=== PATIENT | female | born 1950 | race Caucasian/White ===

== ENCOUNTER → 2018-12-04 12:32 | Outpatient (CLI) | payer MEDICARE, OTHER, SELFPAY ==
--- NOTE | 2018-12-04 | DI.MRI.S_ITS ---
PROCEDURE: MR SHOULDER RT WO CON INDICATIONS: Osteopenia/Right shoulder pain TECHNIQUE: Noncontrast oblique coronal T2 fast spin echo with fat saturation, oblique sagittal T1 spin echo and T2 fast spin echo with fat saturation, axial T1 spin echo and T2 fast spin echo with fat saturation through the shoulder. COMPARISON: None. FINDINGS: Image quality: Excellent. Rotator cuff: Supraspinatus tendinopathy with partial-thickness articular sided tear. Infraspinatus interstitial tearing, with low-grade bursal and articular surface fraying. Teres minor appears intact. Subscapularis mild tendinopathy and thickening. Fat infiltration of the infraspinatus muscle. Borderline atrophy of the supraspinatus muscle. Bones and bursae: No bone marrow contusions or fractures. Severe hypertrophic acromioclavicular joint degeneration. Acromion demonstrates conventional anatomy, without an os acromiale. Mild subacromial-subdeltoid bursitis. Small joint effusion Capsule and soft tissues: Superior labral tear Blunted irregular appearance of the posterior labrum suggestive of chronic tear. Long head of the biceps tendon intact. The rotator interval appears normal, without fibrosis. Coracohumeral ligament intact. IMPRESSION: Supraspinatus tendinopathy with partial-thickness articular sided tear. Infraspinatus interstitial tearing and low-grade bursal and articular surface fraying. Mild subscapularis tendinopathy. Superior and posterior labral tear versus chronic degeneration. Small joint effusion Mild subacromial-subdeltoid bursitis. Dictated by: Jose Duncan M.D. on 12/04/2018 at 15:40 Approved by: Jose Duncan M.D. on 12/04/2018 at 15:48
== END ==
PROVIDERS: PCP Family Medicine; Visit Provider Family Medicine
DX: M25.511 Pain in right shoulder (principal); M85.851 Other specified disorders of bone density and structure, right thigh; Z78.0 Asymptomatic menopausal state; M75.111 Incomplete rotator cuff tear or rupture of right shoulder, not specified as traumatic; M19.011 Primary osteoarthritis, right shoulder; M25.411 Effusion, right shoulder; M75.51 Bursitis of right shoulder; F17.200 Nicotine dependence, unspecified, uncomplicated
CPT/HCPCS: 73221; 77080

== ENCOUNTER → 2020-10-29 15:36 | Outpatient (CLI) | payer MEDICARE, OTHER, SELFPAY ==
--- NOTE | 2020-10-29 | DI.ECHO.S_ITS ---
[facility] +---------+ : : [address] : [address] [address] : : : : [id number] : : : : Phone: [phone]+ Echocardiogram Report + + :Name: BRITNEY INFANTE Study Date: 10/29/2020 Height: 62 in : :[facility] ReadingLocation: Weight: 145 lb : : Gender: Female BSA: 1.7 m2 : :: 1950 Age: 70 yrs BP: 148/89 mmHg: :Reason For Study: PULMONARY HYPERTENSION : :Ordering Physician: NEHEMIAH, : :DENISE Performed By: Sandra Cervantes : :Referring: DENISE SINGH : + + Interpretation Summary 1) Normal left ventricular thickness, size, wall motion, and systolic function (EF 60-65%). 2) Normal right ventricular size and function. 3) There is mild to moderate tricuspid regurgitation. 4) The right ventricular systolic pressure is estimated to be at least 31 mmHg based on an estimated right atrial pressure of 8 mm Hg. 5) No prior Echo available for comparison. Procedure: A two-dimensional transthoracic echocardiogram with color flow and Doppler was performed. The study quality was technically adequate. There is no prior echocardiogram noted for this patient. The patient was in sinus rhythm with heart rates between 60-67 bpm during the exam. Left Ventricle: The left ventricle is normal in size and wall thickness. The ejection fraction is estimated to be 60-65%. Left ventricular systolic function appears normal without focal wall motion abnormalities. Right Ventricle: The right ventricle is normal in size and function. Atria: The left atrium is moderately dilated. Right atrial size is normal. There is no Doppler evidence for an interatrial shunt. The atrial septum is aneurysmal. Mitral Valve: There is moderate mitral annular calcification. There is trace mitral regurgitation. Aortic Valve: The aortic valve is trileaflet. The aortic valve opens well. There is no aortic valve stenosis. No aortic regurgitation is present. Tricuspid Valve: The tricuspid valve is normal in structure and function. There is mild to moderate tricuspid regurgitation. The right ventricular systolic pressure is estimated to be at least 31 mmHg based on an estimated right atrial pressure of 8 mm Hg. Pulmonic Valve: The pulmonic valve is not well visualized. There is no pulmonic valvular regurgitation. Great Vessels: The aortic root is normal size. The dimensions of the ascending aorta are normal. The IVC is dilated (diameter is greater than 2.1 cm) yet it collapses greater than 50% with a sniff. This suggests a right atrial pressure of 8 mm Hg. Pericardium/ Pleura There is no pericardial effusion. There is no pleural effusion. MMode/2D Measurements & Calculations LVIDd: 4.8 cm LVOT diam: 2.0 cm LVIDs: 2.9 cm Ao root diam: 3.4 cm FS: 39.0 % asc Aorta Diam: 3.1 cm IVSd: 0.57 cm Ao Arch Diam (Prox Trans): 2.9 cm LVPWd: 0.68 cm LV perrin. diameter/BSA (cm/m^2): 2.9 LV sys. diameter/BSA (cm/m^2): 1.8 LA A2 area: 21.5 cm2 RA long axis: 5.0 cm LA A4 area: 21.3 cm2 RA area: 15.0 cm2 LA length (vol): 5.4 cm RA vol: 38.1 ml LA vol: 72.0 ml RA : 22.8 ml/m2 LA vol index: 43.2 ml/m2 IVC diam: 2.3 cm RVD1 (basal): 3.0 cm TAPSE: 2.1 cm Doppler Measurements & Calculations Ao V2 max: 184.1 cm/sec LVOT Max Kenton: 102.5 cm/sec Ao V2 mean: 113.2 cm/sec LV V1 max P.2 mmHg Ao max P.6 mmHg LV V1 VTI: 22.6 cm Ao mean P.3 mmHg SHANEL(I,D): 1.9 cm2 Ao V2 VTI: 36.6 cm SHANEL(V,D): 1.7 cm2 sev ratio: 0.62 SHANEL indexed to BSA (cm^2/m^2): 1.1 MV E max kenton: 64.7 cm/sec TR max kenton: 241.9 cm/sec MV A max kenton: 103.2 cm/sec TR max P.5 mmHg MV E/A: 0.63 PA V2 max: 118.9 cm/sec Med Peak E' Kenton: 5.8 cm/sec PA V2 mean: 85.6 cm/sec E/E' med: 11.1 PA mean P.3 mmHg Lat Peak E' Kenton: 9.1 cm/sec PA pr(Accel): 22.5 mmHg E/E' lat: 7.1 E/e' average: 9.1 MV dec time: 0.24 sec SV(LVOT): 68.8 ml Reading Physician:05:39 PM
== END ==
PROVIDERS: PCP Family Medicine; Referring Provider Internal Medicine Cardiovascular Disease; Visit Provider Internal Medicine Cardiovascular Disease
DX: I27.20 Pulmonary hypertension, unspecified (principal); I07.1 Rheumatic tricuspid insufficiency
CPT/HCPCS: 93306

== ENCOUNTER → 2021-03-02 13:09 | Outpatient (CLI) | payer MEDICARE, OTHER, SELFPAY ==
[2021-03-02 14:17] LABS: COVID19 -Nasal RAPID Negative (Negative)
== END ==
PROVIDERS: PCP Family Medicine; Visit Provider Family Medicine Sleep Medicine
DX: Z20.822 Contact with and (suspected) exposure to COVID-19 (principal)
CPT/HCPCS: 87635; C9803

== ENCOUNTER → 2021-03-04 09:42 | Outpatient (CLI) | payer MEDICARE, OTHER, SELFPAY ==
--- NOTE | 2021-03-05 18:03 | DI.NM.S_ITS ---
DATE OF SERVICE: 03/04/2021 PROCEDURE: Pharmacological perfusion study. INDICATION: Chest pain with history of pulmonary hypertension, hypertension, smoking, hyperlipidemia. RADIOPHARMACEUTICAL: 26.3 millicurie technetium-99m Myoview IV was injected at stress and 12.4 millicurie technetium-99m Myoview IV was injected at rest. CARDIAC STRESS: The patient underwent IV Lexiscan perfusion study under the supervision of an attending staff using standard intravenous Lexiscan, as per protocol. Baseline rhythm was sinus. During stress, no convincing ischemic changes seen. No significant arrhythmias seen. The patient remained hemodynamically stable. There were rare PVCs. RAW DATA: There is increased subdiaphragmatic activity. Hot spot seen near the inferior border of the heart. GATED STUDY: Resting LV ejection fraction 67 and stress LV ejection fraction 74 percent. Resting end-diastolic volume 115 mL. TID ratio 1.0, which is within normal limits. Lung/heart ratio 0.21, which is within normal limits. MYOCARDIAL PERFUSION SCAN: Stress supine, resting supine and stress prone images were compared to each other. Resting supine and stress supine images revealed moderate-size, moderate to severely decreased perfusion of inferior wall extending into the inferoapex, which got significantly improved during stress prone images, suggestive of tissue attenuation artifact. No convincing ischemia or infarction pattern seen. CONCLUSION: 1. This is a normal myocardial perfusion scan with evidence of diaphragmatic tissue attenuation artifact, which got resolved during stress prone images. 2. Preserved left ventricular function without any obvious wall motion abnormalities. 3. No significant arrhythmias seen. 4. Overall low-risk myocardial perfusion scan. Tiffany Jason - Medardo/carol doc#: [id number]/job#: [id number] dd: 03/05/2021 16:45:00 dt: 03/05/2021 17:47:00 DICTATING MD/COPIES TO: Maynor Elizalde MD COPIES MNE: CHRISTIAN;
== END ==
PROVIDERS: PCP Family Medicine; Referring Provider Internal Medicine Cardiovascular Disease; Visit Provider Internal Medicine Cardiovascular Disease
DX: R07.9 Chest pain, unspecified (principal); I27.20 Pulmonary hypertension, unspecified; I10 Essential (primary) hypertension; E78.5 Hyperlipidemia, unspecified; F17.200 Nicotine dependence, unspecified, uncomplicated
CPT/HCPCS: 78452; 93017; A9502; J2785

== ENCOUNTER 2022-04-13 11:28 | Emergency (ER) | payer MEDICARE, OTHER, SELFPAY ==
[2022-04-13] VITALS (29 sets, daily range): BP systolic 97–201; BP diastolic 53–89; PULSE 58–79; RESP 18; TEMP 36.6; O2SAT 96–100; BMI 28.3
--- NOTE | 2022-04-13 13:38 | PC.NURSE ---
Pt reporting that her ride has to leave and she wants to go. Paperwork given to pt. While she was filling it out, pt reports again feeling dizzy. Assisted back into wheelchair. Pt given water. States everytime I eat or drink anything I get terrible stomach pains since my colonoscopy. This RN talked with pt ride and Fela says she will go get lunch and check in later if she wants to stay. Pt informed of this and agrees to stay to be seen.
[2022-04-13 14:04] LABS: Add Manual Diff / Slide Review NO; Basophils Absolute Auto 100 /uL (0-100); Basophils Percent Auto 1.2 % (0-2); Eosinophils Absolute Auto 0 /uL (0-450); Eosinophils Percent Auto 0.5 % (2-4); Hematocrit 32.7 % (36-46); Lymphocytes Absolute Auto 1600 /uL (1100-4500); Lymphocytes Percent Auto 27.2 % (25-40); Mean Corpuscular HGB Conc 30.6 % (30-36); Mean Corpuscular Hemoglobin 21.3 PG (26-34); Mean Corpuscular Volume 69.5 fL (80-100); Monocytes Absolute Auto 400 /uL (0-900); Monocytes Percent Auto 6.7 % (3-14); Neutrophils Absolute Auto 3700 /uL (1500-7000); Neutrophils Percent Auto 64.4 % (50-75); Platelet Count 377 X10^3/uL (150-400); Red Cell Distribution Width 17.6 % (11.6-14.8); White Blood Cell Count 5.8 X10^3/uL (4.5-11.0)
[2022-04-13 14:13] LABS: Anisocytosis 2+; Poikilocytosis 2+
[2022-04-13 14:14] LABS: Alanine Aminotransferase 19 IU/L (<35); Albumin 4.7 g/dL (3.5-5.0); Albumin Globulin Ratio 1.4 (1.0-2.8); Alkaline Phosphatase 138 U/L (38-126); Aspartate Aminotransferase 25 IU/L (14-36); BUN Creatinine Ratio 18.3 (6-22); Bilirubin Total 0.4 mg/dL (0.2-1.3); Blood Urea Nitrogen 15 mg/dL (7-17); Calcium 10.1 mg/dL (8.4-10.2); Carbon Dioxide 28 mmol/L (22-32); Chloride 101 mmol/L (98-107); Estimated Glomerular Filt Rate > 60 mL/min (>60); Globulin 3.3 g/dL (1.7-4.1); Glucose 107 mg/dL (80-110); HEMOLYSIS < 15 (0-50); Lipase 143 U/L (23-300); Potassium 3.8 mmol/L (3.4-5.1); Sodium 139 mmol/L (137-145)
[2022-04-13 15:51] LABS: Bacteria Urine None Seen; Culture Indicated Urine Cult Not Indicated; Ictotest Urine Negative (Negative); RBC Urine None Seen (0-5/HPF); Squamous Epithelial Cell Urine 1-5 /HPF (0-5/HPF); WBC Urine None Seen (0-5/HPF)
--- NOTE | 2022-04-13 16:11 | DI.CT.S_ITS ---
PROCEDURE: CT ANGIO HEAD AND NECK INDICATIONS: Dizziness/ataxia TECHNIQUE: Pre-contrast 4.5 mm thick sections acquired from the foramen magnum to the vertex. After the administration of intravenous contrast, 1 mm thick sections acquired from the aortic arch through the Muse of [place]. Post-contrast 4.5 mm thick sections then re-acquired from the foramen magnum to the vertex. MIP reformats of the arterial vasculature were utilized. For radiation dose reduction, the following was used: automated exposure control, adjustment of mA and/or kV according to patient size. COMPARISON: None. FINDINGS: Image quality: Excellent. BRAIN: CSF spaces: Ventricles are normal in size and shape. Basal cisterns are patent. No extra-axial fluid collections. Brain: No midline shift. No intracranial bleeds or masses. Martino-white matter interface appears intact. Skull and face: Calvarium and facial bones appear intact, without suspicious lesions. Orbits appear normal. Sinuses: Sinuses and mastoids are clear. HEAD CT ANGIOGRAPHY: Anterior circulation: Intracranial internal carotid arteries are normal in size and flow. The flow within the paired anterior cerebral arteries is normal and symmetric. The flow within the middle cerebral arteries is normal and symmetric. The anterior communicating artery is seen. No aneurysms are seen. Posterior circulation: Visualized portions of the vertebral arteries demonstrate normal caliber, and join to form a normal appearing basilar artery. Flow within the posterior cerebral arteries is normal and symmetric. No aneurysms are seen. NECK CT ANGIOGRAPHY: Carotid system: The great vessels demonstrate a conventional anatomy as they arise from the aortic arch. The origins of the common carotid arteries appear patent. The common carotid arteries demonstrate normal caliber and courses. The bifurcation regions are both widely patent. Mild sclerotic plaque both proximal internal carotid arteries stenosis Posterior circulation: The origins of the vertebral arteries both appear widely patent. The more superior extracranial portions of both vertebral arteries also demonstrate normal courses and calibers. They join to form a normal appearing basilar artery. Soft tissues: Visualized neck soft tissues demonstrate no suspicious abnormalities. [id number] biapical pulmonary emphysema Bones: No suspicious bony lesions. Visualized cervical spine appears normally aligned. IMPRESSION: Unremarkable intracranial CT angiogram without large vessel occlusion, aneurysm or vascular malformation. Mild atherosclerotic plaque in both proximal internal carotid arteries without hemodynamically significant stenosis. Incidental biapical pulmonary emphysema Any quantitative measurements of stenosis were performed using NASCET criteria. Approved by: Terence Corrales M.D. on 04/13/2022 at 16:54
--- NOTE | 2022-04-13 16:13 | ED.DIZZY ---
HPI - Dizziness <Aniket Rm MD - Last Filed: 04/20/22 08:15> General Chief Complaint: Dizziness Stated Complaint: if she moves her head she gets dizzy Time Seen by Provider: 04/13/22 15:33 Source: patient Mode of arrival: Wheelchair History of Present Illness HPI Narrative: Patient here for complaints of constant dizziness feels like the room is spinning for the past 3 weeks. Worse with lying down and getting up. Prefers to sit at the side of the bed. No numbness tingling or weakness no slurred speech. No headache. Patient states 3 weeks ago she walked into a door jam at home, no loss of consciousness. No vomiting. Had blurry vision. Was taken to local emergency department in [place]. Patient can not get into primary care office until end of this month. No slurred speech no facial droop. No altered mental status. No hearing changes. Patient has been trying to do Sai maneuvers at home without relief. No prescriptions were provided for her. Related Data Home Medications Medication Instructions Recorded Confirmed felodipine 10 mg tablet,extended 10 mg PO DAILY 04/13/22 04/13/22 release 24 hr montelukast 10 mg tablet 10 mg PO BEDTIME 04/13/22 04/13/22 Previous Rx's Medication Instructions Recorded ospemifene 60 mg tablet (Osphena) 60 mg PO DAILY #90 tabs 04/13/22 Allergies Allergy/AdvReac Type Severity Reaction Status Date / Time ibuprofen Allergy Unknown Verified 04/13/22 13:45 Review of Systems <Aniket Rm MD - Last Filed: 04/20/22 08:15> Review of Systems Narrative: GENERAL: negative chills, fatigue, malaise, fever, sweats. HEENT: negative sinus pain, ear pain, sore throat RESPIRATORY: negative dyspnea, cough CARDIOVASCULAR: negative chest pain, palpitations GASTROINTESTINAL: negative nausea, vomiting, abdominal pain : negative dysuria, frequency, hematuria MUSCULOSKELETAL: negative muscle or bony pain SKIN: negative rash, skin lesions NEUROLOGIC: negative weakness, numbness, positive dizziness, negative headache, negative slurred speech or facial droop ROS Unobtainable: All systems reviewed & are unremarkable except as noted in HPI and below Patient History <Aniket Rm MD - Last Filed: 04/20/22 08:15> Medical History (Updated 04/14/22 @ 06:08 by Sourav Vo DO) Anemia Arthritis Asthma Chest pain Chronic UTI Depression FH: CVA (cerebrovascular accident) FH: migraine headache GERD (gastroesophageal reflux disease) Heart attack High blood pressure Hypercholesteremia Hyperlipidemia Kidney stones Lower urinary tract symptoms (LUTS) Mixed stress and urge incontinence Osteoarthritis Peptic ulcer disease Postmenopausal atrophic vaginitis Seizure disorder Thyroid disease Surgical History H/O laparoscopy Family History Family/Other Cancer FH: CVA (cerebrovascular accident) Hyperlipidemia Hypertension Diabetes mellitus Gout Bacterial UTI IBS (irritable bowel syndrome) Social History marital status: number of children: 2 Smoking Status: Current every day smoker Type(s) of exercise: other frequency: decline to answer Smoking Status: Current every day smoker tobacco type: cigarettes alcohol intake frequency: holidays/special occasions only Substance Use Type: marijuana Exam <Aniket Rm MD - Last Filed: 04/20/22 08:15> Narrative Exam Narrative: GENERAL: in no distress, not toxic not dyspneic HEAD: Normocephalic. EYES: Pupils equal round, there is horizontal nystagmus ENT: Mucous membranes moist. NECK: Trachea midline. CARDIOVASCULAR: Regular rate and rhythm without murmurs RESPIRATORY: Clear to auscultation. Breath sounds equal bilaterally. No wheezes, rales, or rhonchi. GASTROINTESTINAL: Abdomen soft, non-tender EXTREMITIES: No gross deformities. BACK: No flank tenderness. NEURO: AOx4. Clear speech no facial droop light touch intact bilateral face hands with strong equal nerve specialist. Negative pronator drift. SKIN: Warm and dry PSYCH: Not anxious, is cooperative Initial Vital Signs Initial Vital Signs: Vital Signs Temperature 97.8 F 04/13/22 11:34 Pulse Rate 68 04/13/22 11:34 Respiratory Rate 18 04/13/22 11:34 Blood Pressure 137/62 04/13/22 11:34 Pulse Oximetry 100 04/13/22 11:34 Oxygen Delivery Method Room Air 04/13/22 11:34 <Sourav Vo DO - Last Filed: 04/14/22 06:05> Initial Vital Signs Initial Vital Signs: Vital Signs Temperature 97.8 F 04/13/22 11:34 Pulse Rate 68 04/13/22 11:34 Respiratory Rate 18 04/13/22 11:34 Blood Pressure 137/62 04/13/22 11:34 Pulse Oximetry 100 04/13/22 11:34 Oxygen Delivery Method Room Air 04/13/22 11:34 Course <Aniket Rm MD - Last Filed: 04/20/22 08:15> Course Course Narrative: April 13, 2022 6:00 p.m. s/w dr vo, will need reservations sales supervisor/pt eval in am, mri brain ordered, at this time patient does not feel safe to go home. She is too unsteady on her feet. Ongoing for 3 weeks. Orders Ordered: Discontinued Medications Sodium Chloride (Normal Saline 0.9%) 500 mls @ 1,000 mls/hr IV BOLUS ONE Stop: 04/13/22 16:40 Last Infusion: 04/13/22 17:22 Dose: 0 mls/hr Documented By: Admin: 04/13/22 16:16 Dose: 1,000 mls/hr Documented By: RB Meclizine HCl (Meclizine Hcl 12.5 Mg Tablet) 25 mg PO NOW ONE Stop: 04/13/22 16:12 Last Admin: 04/13/22 16:15 Dose: 25 mg Documented By: RB Naloxone HCl (Naloxone 0.4 Mg/Ml Vial) 0.2 mg IV Q2MIN PRN PRN Reason: Opiate Reversal Nitrofurantoin Macrocrystals (Nitrofurantoin Er 100 Mg Capsule) 100 mg PO NOW ONE Stop: 04/13/22 21:14 Last Admin: 04/13/22 21:45 Dose: 100 mg Documented By: RB Ondansetron HCl (Ondansetron 4 Mg Odt) 4 mg PO NOW PRN PRN Reason: Nausea And Vomiting Ondansetron HCl (Ondansetron 4 Mg/2 Ml Inj) 4 mg IV NOW PRN PRN Reason: Nausea And Vomiting Vital Signs Vital signs: Vital Signs - 8 hr 04/13/22 22:15 04/13/22 22:15 04/13/22 22:30 Pulse Rate 68 Blood Pressure 116/57 L 97/53 L Pulse Oximetry 96 04/13/22 22:30 04/13/22 22:45 04/13/22 22:45 Pulse Rate 64 63 Blood Pressure 99/57 L Pulse Oximetry 96 97 04/13/22 23:00 04/13/22 23:00 04/13/22 23:15 Pulse Rate 61 Blood Pressure 128/60 130/59 L Pulse Oximetry 96 04/13/22 23:15 04/13/22 23:30 04/13/22 23:30 Pulse Rate 58 L 64 Blood Pressure 138/65 Pulse Oximetry 97 97 04/13/22 23:45 04/13/22 23:45 04/14/22 00:00 Pulse Rate 62 72 Blood Pressure 130/62 Pulse Oximetry 96 97 04/14/22 00:01 04/14/22 00:01 04/14/22 00:15 Pulse Rate 68 Blood Pressure 158/66 H 156/69 H Pulse Oximetry 97 04/14/22 00:15 Pulse Rate 64 Blood Pressure Pulse Oximetry 97 <Sourav Vo DO - Last Filed: 04/14/22 06:05> Orders Ordered: Discontinued Medications Sodium Chloride (Normal Saline 0.9%) 500 mls @ 1,000 mls/hr IV BOLUS ONE Stop: 04/13/22 16:40 Last Infusion: 04/13/22 17:22 Dose: 0 mls/hr Documented By: Admin: 04/13/22 16:16 Dose: 1,000 mls/hr Documented By: VEENA Meclizine HCl (Meclizine Hcl 12.5 Mg Tablet) 25 mg PO NOW ONE Stop: 04/13/22 16:12 Last Admin: 04/13/22 16:15 Dose: 25 mg Documented By: VEENA Naloxone HCl (Naloxone 0.4 Mg/Ml Vial) 0.2 mg IV Q2MIN PRN PRN Reason: Opiate Reversal Nitrofurantoin Macrocrystals (Nitrofurantoin Er 100 Mg Capsule) 100 mg PO NOW ONE Stop: 04/13/22 21:14 Last Admin: 04/13/22 21:45 Dose: 100 mg Documented By: VEENA Ondansetron HCl (Ondansetron 4 Mg Odt) 4 mg PO NOW PRN PRN Reason: Nausea And Vomiting Ondansetron HCl (Ondansetron 4 Mg/2 Ml Inj) 4 mg IV NOW PRN PRN Reason: Nausea And Vomiting Vital Signs Vital signs: Vital Signs - 8 hr 04/13/22 22:15 04/13/22 22:15 04/13/22 22:30 Pulse Rate 68 Blood Pressure 116/57 L 97/53 L Pulse Oximetry 96 04/13/22 22:30 04/13/22 22:45 04/13/22 22:45 Pulse Rate 64 63 Blood Pressure 99/57 L Pulse Oximetry 96 97 04/13/22 23:00 04/13/22 23:00 04/13/22 23:15 Pulse Rate 61 Blood Pressure 128/60 130/59 L Pulse Oximetry 96 04/13/22 23:15 04/13/22 23:30 04/13/22 23:30 Pulse Rate 58 L 64 Blood Pressure 138/65 Pulse Oximetry 97 97 04/13/22 23:45 04/13/22 23:45 04/14/22 00:00 Pulse Rate 62 72 Blood Pressure 130/62 Pulse Oximetry 96 97 04/14/22 00:01 04/14/22 00:01 04/14/22 00:15 Pulse Rate 68 Blood Pressure 158/66 H 156/69 H Pulse Oximetry 97 04/14/22 00:15 Pulse Rate 64 Blood Pressure Pulse Oximetry 97 MDM - Dizziness <Aniket Rm MD - Last Filed: 04/20/22 08:15> Lab Data 04/13/22 13:50 04/13/22 13:50 Labs: Lab Results 04/13/22 04/13/22 04/13/22 Range/Units 13:50 13:50 15:15 WBC 5.8 (4.5-11.0) X10^3/uL RBC 4.70 (4.0-5.2) X10^6/uL Hgb 10.0 L (12.0-16.0) g/dL Hct 32.7 L (36-46) % MCV 69.5 L (80-100) fL MCH 21.3 L (26-34) PG MCHC 30.6 (30-36) % RDW 17.6 H (11.6-14.8) % Plt Count 377 (150-400) X10^3/uL Neut % (Auto) 64.4 (50-75) % Lymph % (Auto) 27.2 (25-40) % [place] % (Auto) 6.7 (3-14) % Eos % (Auto) 0.5 L (2-4) % Baso % (Auto) 1.2 (0-2) % Neut # (Auto) 3700 (3388-1135) /uL Lymph # (Auto) 1600 (0848-9556) /uL [place] # (Auto) 400 (0-900) /uL Eos # (Auto) 0 (0-450) /uL Baso # (Auto) 100 (0-100) /uL RBC Morphology Not Reportable Poikilocytosis 2+ H Anisocytosis 2+ H Sodium 139 (137-145) mmol/L Potassium 3.8 (3.4-5.1) mmol/L Chloride 101 (98-107) mmol/L Carbon Dioxide 28 (22-32) mmol/L BUN 15 (7-17) mg/dL Creatinine 0.82 (0.52-1.04) mg/dL Estimated GFR > 60 (>60) mL/min BUN/Creatinine Ratio 18.3 (6-22) Glucose 107 (80-110) mg/dL Calcium 10.1 (8.4-10.2) mg/dL Total Bilirubin 0.4 (0.2-1.3) mg/dL AST 25 (14-36) IU/L ALT 19 (<35) IU/L Alkaline Phosphatase 138 H (38-126) U/L Total Protein 8.0 (6.3-8.2) g/dL Albumin 4.7 (3.5-5.0) g/dL Globulin 3.3 (1.7-4.1) g/dL Albumin/Globulin Ratio 1.4 (1.0-2.8) Lipase 143 (23-300) U/L Ur Bilirubin Confirm Negative (Negative) Urine RBC None seen (0-5/HPF) Urine WBC None seen (0-5/HPF) Ur Squamous Epith Cells 1-5 /hpf (0-5/HPF) Urine Bacteria None seen (None) Ur Culture Indicated? Cult not indicated Urine Dip Bedside Urine Glucose Negative Bedside Urine Bilirubin + 1 Bedside Urine Ketone - Negative Urine Specific [place] 1.005 Bedside Urine Occult Blood - Negative Bedside Urine pH 7.5 Bedside Urine Protein - Negative Bedside Urine Urobilinogen 2+ 4mg Bedside Urine Nitrite + Positive Bedside Urine Leukocytes + 70 Esterase Imaging Data CTA - brain/neck: Radiologist's Impression: PROCEDURE:? CT ANGIO HEAD AND NECK ? INDICATIONS:? Dizziness/ataxia ? TECHNIQUE:? Pre-contrast 4.5 mm thick sections acquired from the foramen magnum to the vertex.? After the administration of intravenous contrast, 1 mm thick sections acquired from the aortic arch through the [place] of [place].? Post-contrast 4.5 mm thick sections then re-acquired from the foramen magnum to the vertex.? MIP reformats of the arterial vasculature were utilized.? For radiation dose reduction, the following was used:? automated exposure control, adjustment of mA and/or kV according to patient size.? ? COMPARISON:? None. ? FINDINGS:? Image quality:? Excellent.? ? BRAIN:? CSF spaces:? Ventricles are normal in size and shape.? Basal cisterns are patent.? No extra-axial fluid collections.? ? Brain:? No midline shift.? No intracranial bleeds or masses.? Martino-white matter interface appears intact.? ? Skull and face:? Calvarium and facial bones appear intact, without suspicious lesions.? Orbits appear normal.? ? Sinuses:? Sinuses and mastoids are clear.? ? HEAD CT ANGIOGRAPHY:? Anterior circulation:? Intracranial internal carotid arteries are normal in size and flow.? The flow within the paired anterior cerebral arteries is normal and symmetric.? The flow within the middle cerebral arteries is normal and symmetric.? The anterior communicating artery is seen.? No aneurysms are seen.? ? Posterior circulation:? Visualized portions of the vertebral arteries demonstrate normal caliber, and join to form a normal appearing basilar artery.? Flow within the posterior cerebral arteries is normal and symmetric.? No aneurysms are seen.? ? NECK CT ANGIOGRAPHY:? Carotid system:? The great vessels demonstrate a conventional anatomy as they arise from the aortic arch.? The origins of the common carotid arteries appear patent.? The common carotid arteries demonstrate normal caliber and courses.? The bifurcation regions are both widely patent.? Mild sclerotic plaque both proximal internal carotid arteries stenosis? ? Posterior circulation:? The origins of the vertebral arteries both appear widely patent.? The more superior extracranial portions of both vertebral arteries also demonstrate normal courses and calibers.? They join to form a normal appearing basilar artery.? ? Soft tissues:? Visualized neck soft tissues demonstrate no suspicious abnormalities.? [id number] biapical pulmonary emphysema ? Bones:? No suspicious bony lesions.? Visualized cervical spine appears normally aligned.? IMPRESSION:? ? Unremarkable intracranial CT angiogram without large vessel occlusion, aneurysm or vascular malformation.? ? Mild atherosclerotic plaque in both proximal internal carotid arteries without hemodynamically significant stenosis. ? Incidental biapical pulmonary emphysema ? Any quantitative measurements of stenosis were performed using NASCET criteria.? Approved by: Terence Corrales M.D. on 04/13/2022 at 16:54? [facility] Narrative Medical decision making narrative: Patient here for complaints of constant dizziness feels like the room is spinning for the past 3 weeks. Worse with lying down and getting up. Prefers to sit at the side of the bed. No numbness tingling or weakness no slurred speech. No headache. Patient states 3 weeks ago she walked into a door jam at home, no loss of consciousness. No vomiting. Had blurry vision. Was taken to local emergency department in [place]. Patient can not get into primary care office until end of this month. No slurred speech no facial droop. No altered mental status. No hearing changes. Patient has been trying to do Sai maneuvers at home without relief. No prescriptions were provided for her. After history and exam CBC CMP EKG troponin, CT angiogram head and neck ordered, meclizine and normal saline ordered [facility] CC: Dizziness Complicating co-morbidities: None Data collected from: Patient Medical records reviewed: No previous visits for this complaint Differential considered: Includes but not limited to stroke/TIA/vertigo/postconcussive syndrome Exam documented above, pertinent findings include: Horizontal nystagmus Lab Test results independently reviewed as above. Pertinent findings: White cell count 5.8 hemoglobin 10 hematocrit 32 sodium 139 potassium 3.8 AST 25 ALT 19 creatinine 0.82 GFR greater than 60 urinalysis negative bacteria negative WBC Independently reviewed EKG as above normal sinus rhythm rate [address] elevation or depression Imaging studies independently reviewed: CT angio head and neck no acute process Consultations: Treatments: Normal saline Re-evaluations: 6:35 p.m.. Patient still feels dizziness and unstable with her feet after meclizine. She does not feel safe going home for fear of falling. At this time, I feel it would be unsafe for patient to go home as she lives alone. She does agree for staying overnight for social work evaluation as well as physical therapy and MRI of the brain. Discussion: Diagnosis: <DO Lety Werner Last Filed: 04/14/22 06:05> Lab Data Labs: Lab Results 04/13/22 04/13/22 04/13/22 Range/Units 13:50 13:50 15:15 WBC 5.8 (4.5-11.0) X10^3/uL RBC 4.70 (4.0-5.2) X10^6/uL Hgb 10.0 L (12.0-16.0) g/dL Hct 32.7 L (36-46) % MCV 69.5 L (80-100) fL MCH 21.3 L (26-34) PG MCHC 30.6 (30-36) % RDW 17.6 H (11.6-14.8) % Plt Count 377 (150-400) X10^3/uL Neut % (Auto) 64.4 (50-75) % Lymph % (Auto) 27.2 (25-40) % [place] % (Auto) 6.7 (3-14) % Eos % (Auto) 0.5 L (2-4) % Baso % (Auto) 1.2 (0-2) % Neut # (Auto) 3700 (0620-4010) /uL Lymph # (Auto) 1600 (6928-7978) /uL [place] # (Auto) 400 (0-900) /uL Eos # (Auto) 0 (0-450) /uL Baso # (Auto) 100 (0-100) /uL RBC Morphology Not Reportable Poikilocytosis 2+ H Anisocytosis 2+ H Sodium 139 (137-145) mmol/L Potassium 3.8 (3.4-5.1) mmol/L Chloride 101 (98-107) mmol/L Carbon Dioxide 28 (22-32) mmol/L BUN 15 (7-17) mg/dL Creatinine 0.82 (0.52-1.04) mg/dL Estimated GFR > 60 (>60) mL/min BUN/Creatinine Ratio 18.3 (6-22) Glucose 107 (80-110) mg/dL Calcium 10.1 (8.4-10.2) mg/dL Total Bilirubin 0.4 (0.2-1.3) mg/dL AST 25 (14-36) IU/L ALT 19 (<35) IU/L Alkaline Phosphatase 138 H (38-126) U/L Total Protein 8.0 (6.3-8.2) g/dL Albumin 4.7 (3.5-5.0) g/dL Globulin 3.3 (1.7-4.1) g/dL Albumin/Globulin Ratio 1.4 (1.0-2.8) Lipase 143 (23-300) U/L Ur Bilirubin Confirm Negative (Negative) Urine RBC None seen (0-5/HPF) Urine WBC None seen (0-5/HPF) Ur Squamous Epith Cells 1-5 /hpf (0-5/HPF) Urine Bacteria None seen (None) Ur Culture Indicated? Cult not indicated Urine Dip Bedside Urine Glucose Negative Bedside Urine Bilirubin + 1 Bedside Urine Ketone - Negative Urine Specific [place] 1.005 Bedside Urine Occult Blood - Negative Bedside Urine pH 7.5 Bedside Urine Protein - Negative Bedside Urine Urobilinogen 2+ 4mg Bedside Urine Nitrite + Positive Bedside Urine Leukocytes + 70 Esterase Imaging Data Brain MRI: Radiologist's Impression: PROCEDURE:? MR HEAD/BRAIN WO CON ? INDICATIONS:? Ataxia ? TECHNIQUE:? Noncontrast axial T1 spin echo, axial T2 fast spin echo, sagittal and axial FLAIR, coronal T2 fast spin echo, axial gradient echo, axial diffusion and ADC through the brain.? ? COMPARISON:? None. ? FINDINGS:? Image quality:? Excellent.? ? CSF Spaces:? Basal cisterns are patent.? No extra-axial fluid collections.? Ventricles are normal in size and shape.? ? Brain:? No intracranial masses or hemorrhage.? [place]/white matter interface is normal.? Brainstem appears normal.? Diffusion-weighted sequence is unremarkable without evidence of acute infarct.? Normal intravascular flow voids are present. ? Skull and face:? Calvarium has normal marrow signal.? Orbits appear normal.? ? Sinuses:? Sinuses and mastoids are clear.? ? IMPRESSION:? Normal MRI brain MDM Narrative Medical decision making narrative: Patient here for complaints of constant dizziness feels like the room is spinning for the past 3 weeks. Worse with lying down and getting up. Prefers to sit at the side of the bed. No numbness tingling or weakness no slurred speech. No headache. Patient states 3 weeks ago she walked into a door jam at home, no loss of consciousness. No vomiting. Had blurry vision. Was taken to local emergency department in [place]. Patient can not get into primary care office until end of this month. No slurred speech no facial droop. No altered mental status. No hearing changes. Patient has been trying to do Sai maneuvers at home without relief. No prescriptions were provided for her. After history and exam CBC CMP EKG troponin, CT angiogram head and neck ordered, meclizine and normal saline ordered MDM CC: Dizziness Complicating co-morbidities: None Data collected from: Patient Medical records reviewed: No previous visits for this complaint Differential considered: Includes but not limited to stroke/TIA/vertigo/postconcussive syndrome Exam documented above, pertinent findings include: Horizontal nystagmus Lab Test results independently reviewed as above. Pertinent findings: White cell count 5.8 hemoglobin 10 hematocrit 32 sodium 139 potassium 3.8 AST 25 ALT 19 creatinine 0.82 GFR greater than 60 urinalysis negative bacteria negative WBC Independently reviewed EKG as above normal sinus rhythm rate [address] elevation or depression Imaging studies independently reviewed: CT angio head and neck no acute process Consultations: Treatments: Normal saline Re-evaluations: 6:35 p.m.. Patient still feels dizziness and unstable with her feet after meclizine. She does not feel safe going home for fear of falling. At this time, I feel it would be unsafe for patient to go home as she lives alone. She does agree for staying overnight for social work evaluation as well as physical therapy and MRI of the brain. Discussion: Diagnosis: Dr vo: Received turned over. Reviewed patient's history and physical and workup to this point. Patient's MRI is unremarkable. During my independent exam patient states she was still having dizziness. She was having difficulty standing at bedside. Dr. Rm his already ordered physical therapy and social work consult. Patient stayed in the emergency department overnight. She was alert oriented x3. There periods of time when she does stand at bedside. She was sitting in a wheelchair. She took steps on her own. Patient no longer requires physical therapy consultation. Attempted to contact the patient's son however he could not come and pick her up due to a restraining order in the fact that he could not come close to the hospital. Patient is stable for discharge where she can continue to take her home medications. there are no indications today that this is a central vertigo. Discharge Plan Departure Patient Disposition: Home Clinical Impression: Vertigo, Acute UTI Instructions: DI for Vertigo, DI for Urinary Tract Infection (UTI) Activity Restrictions/Additional Instructions: Based on your urinalysis today it does appear that you have a urinary tract infection and we should continue you on antibiotics. This prescription was electronically transmitted to the [facility] pharmacy and should be ready for pickling solution maker later this morning. I recommend that you keep all of your scheduled medical followups. Contact your primary doctor for a follow-up. Prescriptions: No Action felodipine 10 mg tablet extended release 24 hr 10 mg PO DAILY montelukast 10 mg tablet 10 mg PO BEDTIME Osphena 60 mg tablet 60 mg PO DAILY Qty: 90 3RF Rx Instructions: must administer with food, preferably a high-fat meal Referrals: Aniket Morin DO [Primary Care Provider] - Stand Alone Forms: Patient Portal/API
[2022-04-13] MEDS: MECLIZINE HCL 12.5 MG TABLET 25 MG PO (16:15)
[2022-04-13] MEDS: SODIUM CHLORIDE 0.9% 500 ML 1000 ML IV (16:16)
--- NOTE | 2022-04-13 18:34 | DI.MRI.S_ITS ---
PROCEDURE: MR HEAD/BRAIN WO CON INDICATIONS: Ataxia TECHNIQUE: Noncontrast axial T1 spin echo, axial T2 fast spin echo, sagittal and axial FLAIR, coronal T2 fast spin echo, axial gradient echo, axial diffusion and ADC through the brain. COMPARISON: None. FINDINGS: Image quality: Excellent. CSF Spaces: Basal cisterns are patent. No extra-axial fluid collections. Ventricles are normal in size and shape. Brain: No intracranial masses or hemorrhage. Mart[place]/white matter interface is normal. Brainstem appears normal. Diffusion-weighted sequence is unremarkable without evidence of acute infarct. Normal intravascular flow voids are present. Skull and face: Calvarium has normal marrow signal. Orbits appear normal. Sinuses: Sinuses and mastoids are clear. IMPRESSION: Normal MRI brain Approved by: Terence Corrales M.D. on 04/13/2022 at 18:42
[2022-04-13] MEDS: NITROFURANTOIN ER 100 MG CAPSULE PO (21:45)
[2022-04-14] VITALS: PULSE 72; O2SAT 97
[2022-04-14 00:01] VITALS: BP 158/66; PULSE 68; O2SAT 97
[2022-04-14 00:15] VITALS: BP 156/69; PULSE 64; O2SAT 97
--- NOTE | 2022-04-14 01:09 | PC.NURSE ---
2 person assist to bedside commode. pt legs weak and pt unstable when standing
--- NOTE | 2022-04-14 06:28 | PC.NURSE ---
Addendum entered by Brisa Doan R.N. 04/14/22 06:42: the discussion about removing the IV went back and forth with her refusing and this nurse attempting to explain it had to be removed prior to her leaving for 1-2 min Original Note: pt started rolling out of the department in a w/c attempted to call to pt to remove the IV prior to pt leaving, pt refused to stop and allow the IV to be removed. pt stated she would not let anyone in the department touch her and she was going to patient quality, attempted to explain to pt that she could not leave the department without having the IV removed, security was called, after several attempts to get pt to allow the IV to be removed, CARINA Pringle attempt to speak with pt and explain that we needed to remove the IV. pt proceeded to call 911 and tell them she needed some assistance because she did not know where the doctor was that told her that she should stay and see GLASS INSTALLER TECHNICIAN this am because it was not safe for her to go home, (this nurse explained to Yary LIM that Dr Rm had stated that but Dr Vo evaluated her and determined she could be dc) CARINA Pringle was able to get pt to put the phone on speaker and was able to explain to them that we would give her the number to pt quality assistant. pt stated she would allow Yary to remove the IV this nurse then came back in the unit and left pt with CARINA Pringle
== END 2022-04-14 06:45 | disposition home or self-care (01) ==
PROVIDERS: Emergency Medicine; Emergency Provider Emergency Medicine; PCP Family Medicine
DX: N39.0 Urinary tract infection, site not specified (principal); R42 Dizziness and giddiness; R10.9 Unspecified abdominal pain; N95.2 Postmenopausal atrophic vaginitis; N39.46 Mixed incontinence; R39.9 Unspecified symptoms and signs involving the genitourinary system
CPT/HCPCS: 36415; 51798; 70496; 70498; 70551; 80053; 81003; 81015; 83690; 85025; 87086; 93005; 99215; 99284

== ENCOUNTER → 2023-11-15 11:26 | Outpatient (CLI) | payer MEDICARE, OTHER, SELFPAY ==
--- NOTE | 2023-11-15 11:30 | DI.CT.S_ITS ---
PROCEDURE: CT SINUS SCREEN WO CON INDICATIONS: Chronic pansinusitis TECHNIQUE: Noncontrast 3.0 mm axial images acquired from the frontal sinuses to the mid-sella, with coronal and sagittal reformats. For radiation dose reduction, the following was used: automated exposure control, adjustment of mA and/or kV according to patient size. COMPARISON: [facility], CT, CT ANGIO HEAD AND NECK, 04/13/2022, 16:24. FINDINGS: Image quality: Excellent. Maxillary Sinuses: Prior left antrectomy change can be seen. Sinuses are clear. Ethmoid Air Cells: No bony remodeling or destruction. Sinuses are clear. Sphenoid Sinuses: No bony remodeling or destruction. Sinuses are clear. Frontal Sinuses: No bony remodeling or destruction. Sinuses are clear. Ostiomeatal Complexes: The left ostiomeatal complex has been removed. The right ostiomeatal complex is patent, yet is narrowed. Miscellaneous: Visualized intra-orbital contents are normal. 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 There is mild S shaped nasal septal deviation. 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 IMPRESSION: No significant active paranasal sinus disease can be seen. Prior left antrectomy change noted. Additional findings: Focal right temporomandibular joint degenerative change. Dictated by: Pedro Cannon M.D. on 11/15/2023 at 14:35 Approved by: Pedro Cannon M.D. on 11/15/2023 at 14:42
== END ==
PROVIDERS: Referring Provider Otolaryngology; Visit Provider Otolaryngology
DX: J32.4 Chronic pansinusitis (principal); J34.2 Deviated nasal septum; R51.9 Headache, unspecified; R09.82 Postnasal drip
CPT/HCPCS: 70486